=== PATIENT | male | born 1985 | race African-American/Black ===

== ENCOUNTER 2017-11-17 16:56 | Emergency (ER) | payer SELFPAY ==
[2017-11-17 17:11] VITALS: BP 125/77
--- NOTE | 2017-11-17 17:15 | ED Physician Documentation ---
General Adult - HISTORIAN Historian: patient - HPI Stated Complaint: Right ear pain Chief Complaint: General Adult Onset: days ago (2) Timing: still present Severity: moderate Further Comments: yes (Pt is a 32 yo male with R ear pain x 2 days. No sore throat, no fever, no cough. Pt has taken Tylenol and OTC ear drops.) - ROS CONST: no problems EYES/ENT: other (R ear pain) CVS/RESP: none GI/: none MS/SKIN/LYMPH: none - PAST HX Past History: none Other History: none Allergies/Adverse Reactions: Allergies Allergy/AdvReac Type Severity Reaction Status Date / Time No Known Allergies Allergy Verified 11/17/17 17:09 Home Medications: Ambulatory Orders Medication Instructions Recorded Amoxicillin [Trimox] 500 mg PO Q8H #30 capsule 11/17/17 - SOCIAL HX Smoking History: non-smoker - FAMILY HX Family History: No - VITAL SIGNS Vital Signs: Vital Signs Temp Pulse Resp BP Pulse Ox 98.2 F 68 18 125/77 99 11/17/17 17:06 11/17/17 17:06 11/17/17 17:06 11/17/17 17:06 11/17/17 17:06 - REVIEWED ASSESSMENTS Nursing Assessment Reviewed: Yes Vitals Reviewed: Yes Progress - Progress Progress: Rx Amoxicillin 500 mg. Take one by mouth every 8 hrs for 10 days. General Adult Physical Exam - PHYSICAL EXAM GENERAL APPEARANCE: mild distress EENT: pharynx normal, TM erythema (R) NECK: normal inspection, supple RESPIRATORY: no resp distress, chest non-tender, breath sounds normal CVS: reg rate & rhythm, heart sounds normal BACK: normal inspection SKIN: warm/dry, normal color EXTREMITIES: non-tender, normal range of motion, no evidence of injury, no edema NEURO: oriented X3, motor nml, sensation nml Discharge Clincal Impression: R Otitis Media Prescriptions: Amoxicillin [Trimox] 500 mg PO Q8H #30 capsule Referrals: Primary Doctor,No [Primary Care Provider] - Condition: Good Disposition: 01 HOME, SELF-CARE Decision to Admit: NO Decision Time: 17:21
== END 2017-11-17 17:24 | disposition home or self-care (01) ==
LOC: ED 16:56
DX: H66.91 Otitis media, unspecified, right ear (principal)
CPT/HCPCS: 99282

== ENCOUNTER 2018-02-19 07:18 | Emergency (ER) | payer SELFPAY ==
[2018-02-19 07:27] VITALS: BP 140/103
--- NOTE | 2018-02-20 00:19 | ED Physician Documentation ---
Eye Problem - HISTORIAN Historian: patient - HPI Stated Complaint: R eye pain Chief Complaint: Eye Problems Onset: days ago Associated symptoms: pain, itching, redness Location: right eye Severity: moderate Apparent Injury: no Context: denies: foreign body, direct trauma, projectile injury, penetration injury, chemical exposure, exposure to welding arc, tanning booths, wearing glasses, contact lenses, sick contact Further Comments: yes (32 year old male patient presents with complaint of right eye pain with redness and itching.) - ROS CONST: no problems - PAST HX Past History: none Immunizations: UTD Allergies/Adverse Reactions: Allergies Allergy/AdvReac Type Severity Reaction Status Date / Time No Known Allergies Allergy Verified 02/19/18 07:27 Home Medications: Ambulatory Orders Medication Instructions Recorded Neomycin/Polymyxin B/Dexametha 2 drop OP QID #1 drops.susp 02/19/18 [Maxitrol Eye Drops] - SOCIAL HX Smoking History: non-smoker - FAMILY HX Family History: none - VITAL SIGNS Vital Signs: Vital Signs Temp Pulse Resp BP Pulse Ox 98.0 F 62 17 140/103 99 02/19/18 07:48 02/19/18 07:48 02/19/18 07:48 02/19/18 07:48 02/19/18 07:48 - REVIEWED ASSESSMENTS Nursing Assessment Reviewed: Yes Vitals Reviewed: Yes ED Results Lab/Radiology - Orders Orders: ED Orders Category Date Time Status Eye Acuity 1T Care 02/19/18 07:39 Active Eye Problem Physical Exam - Physical Exam General Appearance: mild distress Examined with Slit Lamp: No Visual Acuity: see nursing assessment Eyelids: nml inspection Conjunctiva and Sclera: nml inspection (left), injected (R). No: exudate (R) Corneas: nml inspection EOM: intact Pupils: equal Anterior Chambers: nml inspection Head/ENT: nml inspection, pharynx nml Skin: nml color, warm, skin intact Respiratory: no resp distress CVS: reg rate & rhythm Neuro/Psych: oriented x3, neuro intact, mood/affect nml Discharge Clincal Impression: Conjunctivitis Qualifiers: Conjunctivitis type: acute Acute conjunctivitis type: bacterial Laterality: right Qualified Code(s): H10.31 - Unspecified acute conjunctivitis, right eye Prescriptions: Neomycin/Polymyxin B/Dexametha [Maxitrol Eye Drops] 2 drop OP QID #1 drops.susp Referrals: Primary Doctor,No [Primary Care Provider] - 2 Days Condition: Stable Disposition: 01 HOME, SELF-CARE Decision to Admit: NO Decision Time: 07:45
== END 2018-02-19 07:48 | disposition home or self-care (01) ==
LOC: ED 07:18
DX: H10.31 Unspecified acute conjunctivitis, right eye (principal)
CPT/HCPCS: 99282